=== PATIENT | male | born 1985 | race Caucasian/White ===

== ENCOUNTER → 2018-07-03 | Outpatient (CLI) | payer OTHER ==
[~2018-07-03] MED LIST: ACET-716 PO; ADDE10CA3; ARIS2.4I; AUGM500T34 PO; IBUP-1022 PO; MAGICMW MT; MELO15TA28; MOBI4TAB PO; SERT-138 PO; WELLTAB40
--- NOTE | 2018-07-07 07:53 | SLEEPHOME ---
DATE OF PROCEDURE: 07/03/2018 ORDERING PROVIDER: GEOVANNY Hylton, copy to BERNIE Mays. INTERPRETATION: Diagnostic home sleep testing was performed due to concern for the obstructive sleep apnea syndrome in this patient with history of excessive somnolence and nonrestorative sleep who has comorbidities of snoring. For testing a nocturnal T3 respiratory monitoring device was used. Continuous record was made of pulse, oxygen saturation, airflow, chest, abdominal strain and body position. 10 hours and 59 minutes of data were reviewed. There were 7 hours and 49 minutes identified as time in bed. During the interval marked time in bed, there were 772 respiratory events identified of 10 seconds in duration or greater for a respiratory event index of 98.7. The events were primarily obstructive but 50 of the events were central or mixed. Baseline pulse rate 87 beats per minute, pulse rate ranged 69-114. Baseline saturation 93% saturations fell to 70%, and the oxygen desaturation index was 87.9. IMPRESSION: Abnormal home sleep testing with repetitive respiratory events and oxygen desaturations to 70% with a respiratory event index of 98.7 is consistent with severe obstructive sleep apnea syndrome. RECOMMENDATIONS: The patient should be encouraged to undergo formal sleep evaluation and in-laboratory pressure titration.
== END ==
LOC: M SLEEP HO 11:40
PROVIDERS: ATTEND Nurse Practitioner Family
DX: R06.83 Snoring (principal)

== ENCOUNTER → 2018-07-11 | Outpatient (CLI) | payer OTHER ==
[2018-07-11 14:04] LABS: HEMOGLOBIN A1c 6.6 %
[2018-07-11 14:15] LABS: CHOLESTEROL RISK RATIO 7.848 (<5)
== END ==
LOC: M LAB 12:43
PROVIDERS: ATTEND Nurse Practitioner Psychiatric/Mental Health
DX: F20.0 Paranoid schizophrenia (principal); Z79.899 Other long term (current) drug therapy

== ENCOUNTER 2018-10-13 11:50 | Day surgery (SDC) | payer OTHER ==
[~2018-10-13] VITALS: Ht 185.4 cm; Wt 170.1 kg
[~2018-10-13 11:50] MED LIST changes: +ADDE20CA3 PO; +BUPR300T34 PO; +LIDOCAINE 2% INJ 100 MG/5 ML SDV (FOR ANES.) As Ordered ONE; +LORA-243 PO; +PROPOFOL 200 MG/20 ML VIAL As Ordered ONE
[2018-10-13] MEDS: NS 1,000 ML IV ONE (12:18)
[2018-10-13] MEDS ORDERED: fentaNYL 100 MCG/2 ML INJECTION (J3010) As Ordered ONE (12:22)
--- NOTE | 2018-10-13 13:13 | ROOR ---
Patient Name: Vipul Lucero Procedure Date: 10/13/2018 12:25 PM Date of : 1985 Age: 33 Room: [facility] Gender: Male Note Status: Finalized Procedure: Upper GI endoscopy Indications: Follow-up of eosinophilic esophagitis Providers: Madhu Ahumada MD Referring MD: RACHELLE GARCIA NP Requesting Provider: Medicines: Monitored Anesthesia Care Complications: No immediate complications. Procedure: Pre-Anesthesia Assessment: - Prior to the procedure, a History and Physical was performed, and patient medications and allergies were reviewed. The patient is competent. The risks and benefits of the procedure and the sedation options and risks were discussed with the patient. All questions were answered and informed consent was obtained. Patient identification and proposed procedure were verified by the physician, the nurse and the anesthesiologist in the procedure room. Mental Status Examination: alert and oriented. Airway Examination: normal oropharyngeal airway and neck mobility. Respiratory Examination: clear to auscultation. CV Examination: normal. Prophylactic Antibiotics: The patient does not require prophylactic antibiotics. Prior Anticoagulants: The patient has taken no previous anticoagulant or antiplatelet agents. ASA Grade Assessment: II - A patient with mild systemic disease. After reviewing the risks and benefits, the patient was deemed in satisfactory condition to undergo the procedure. The anesthesia plan was to use monitored anesthesia care (MAC). Immediately prior to administration of medications, the patient was re-assessed for adequacy to receive sedatives. The heart rate, respiratory rate, oxygen saturations, blood pressure, adequacy of pulmonary ventilation, and response to care were monitored throughout the procedure. The physical status of the patient was re-assessed after the procedure. The Endoscope was introduced through the mouth, and advanced to the second part of duodenum. The upper GI endoscopy was accomplished without difficulty. The patient tolerated the procedure well. Findings: Mucosal changes including ringed esophagus, longitudinal furrows, white plaques and circumferential folds were found in the entire esophagus. Esophageal findings were graded using the Eosinophilic Esophagitis Endoscopic Reference Score (EoE-EREFS) as: Edema Grade 1 Present (decreased clarity or absence of vascular markings), Rings Grade 2 Moderate (distinct rings that do not occlude passage of diagnostic 8-10 mm endoscope), Exudates Grade 1 Mild (scattered white lesions involving less than 10 percent of the esophageal surface area), Furrows Grade 1 Present (vertical lines with or without visible depth) and Stricture none (no stricture found). Biopsies were obtained from the proximal and distal esophagus with cold forceps for histology of suspected eosinophilic esophagitis. Verification of patient identification for the specimen was done by the physician and nurse using the patient's name, date and medical record number. Estimated blood loss was minimal. The Z-line was regular and was found in the distal esophagus. Scattered minimal inflammation characterized by erythema and granularity was found in the gastric antrum. Biopsies were taken with a cold forceps for Helicobacter pylori testing. The duodenal bulb and second portion of the duodenum were normal. Impression: - Esophageal mucosal changes secondary to eosinophilic esophagitis. Biopsied. - Z-line regular, in the distal esophagus. - Gastritis. Biopsied. - Normal duodenal bulb and second portion of the duodenum. Recommendation: - Patient has a contact number available for emergencies. The signs and symptoms of potential delayed complications were discussed with the patient. Return to normal activities tomorrow. Written discharge instructions were provided to the patient. - Resume previous diet. - Continue present medications. - Await pathology results. - - Take fluticasone -- 220mcg puffs - to be swallowed -- twice daily. - Telephone GI clinic for pathology results in 2 weeks. - Return to primary care physician. - Avoid the food allergens. Follow Six Food Elimination Diet ( Avoid -- milk, soy, eggs, wheat, peanuts/tree nuts, and seafood), until allergy testing is done. Madhu Ahumada MD Madhu Ahumada MD 10/13/2018 1:12:26 PM Electronically signed by Madhu Ahumada MD Number of Addenda: 0 Note Initiated On: 10/13/2018 12:25 PM Estimated Blood Loss: Estimated blood loss: none.
[2018-10-13 13:29] VITALS: BP 129/63
== END 2018-10-13 14:23 | disposition home or self-care (01) ==
LOC: M OPP 11:50
PROVIDERS: ATTEND Internal Medicine Gastroenterology
DX: K20.0 Eosinophilic esophagitis (principal); K29.70 Gastritis, unspecified, without bleeding; Z79.899 Other long term (current) drug therapy; Z88.5 Allergy status to narcotic agent
CPT/HCPCS: 88305; J3010

== ENCOUNTER → 2018-10-31 | Outpatient (REF) | payer OTHER ==
[~2018-10-31] MED LIST changes: -LIDOCAINE 2% INJ 100 MG/5 ML SDV (FOR ANES.) As Ordered ONE; -PROPOFOL 200 MG/20 ML VIAL As Ordered ONE
[2018-11-02 14:51] LABS: TESTOSTERONE FREE (DIRECT) 6.3 pg/mL (8.7-25.1)
== END ==
LOC: M LAB REF 16:15
PROVIDERS: ATTEND Nurse Practitioner Family
DX: N52.9 Male erectile dysfunction, unspecified (principal)

== ENCOUNTER → 2018-12-14 | Outpatient (CLI) | payer OTHER ==
[2018-12-14 16:01] LABS: FOLLICLE STIMULATING HORMONE 5.2 mIU/mL (1.4-18.1)
[2018-12-20 10:12] LABS: TESTOSTERONE %FREE+WEAKLY BOUN 45.8 % (9.0-46.0); TESTOSTERONE TOTAL 227 ng/dL (264-916)
== END ==
LOC: M LAB 13:27
PROVIDERS: ATTEND Nurse Practitioner Family
DX: E29.1 Testicular hypofunction (principal)

== ENCOUNTER → 2019-01-03 | Outpatient (CLI) | payer OTHER ==
[2019-01-06 00:13] LABS: TESTOSTERONE %FREE+WEAKLY BOUN 28.4 % (9.0-46.0); TESTOSTERONE FREE+WEAKLY BOUND 61.1 ng/dL (40.0-250.0); TESTOSTERONE TOTAL 215 ng/dL (264-916)
== END ==
LOC: M LAB 09:59
PROVIDERS: ATTEND Nurse Practitioner Family
DX: E29.1 Testicular hypofunction (principal)

== ENCOUNTER → 2019-01-15 | Outpatient (CLI) | payer OTHER ==
--- NOTE | 2019-01-16 02:45 | REP ---
Clinical: Medial sided pain . Technique: AP, lateral, bilateral oblique views left ankle . Findings: No acute fracture or dislocation. Skeletal structures and joint spaces are intact and normal. Ankle mortise appears stable. No subcutaneous emphysema or radiodense foreign body. Small calcaneal heal spur noted. Impression: Normal age-appropriate left ankle radiograph series. Electronically Signed by Merrick Roa MD 01/16/2019 02:37 A
== END ==
LOC: M WUC 15:50
PROVIDERS: ATTEND Physician Assistant
DX: M25.572 Pain in left ankle and joints of left foot (principal)

== ENCOUNTER 2019-06-03 12:33 | Emergency (ER) | payer OTHER ==
[~2019-06-03] VITALS: Ht 188 cm; Wt 173.6 kg
[~2019-06-03 12:33] MED LIST changes: -BUPR300T34 PO; +BUPR300T92 PO
[2019-06-03] MEDS ORDERED: RISP1TAB3 (12:42)
[2019-06-03] MEDS ORDERED: MECLIZINE 25 MG TABLET PO ONE (13:00)
--- NOTE | 2019-06-03 13:25 | REP ---
Head CT without contrast: History: Vertigo. Comparison study: No comparison study where. CT findings: Bone window settings demonstrate an intact bony calvarium. There is no evidence of skull fracture or incidental bony calvarial lesion. The visualized paranasal sinuses appear clear. No intraorbital abnormality is seen. On soft tissue window setting images; the lateral, third, and fourth ventricles are normal in size and position. Peters-white differentiation pattern is normal above and below the tentorium. There are is no evidence of intracranial hemorrhage. No mass, edema, infarction, or midline shift is seen. No extra-axial fluid collection is appreciated. Impression: Negative noncontrast head CT. Electronically Signed by Rasheed Gonzalez MD 06/03/2019 01:16 P
[2019-06-03 13:26] LABS: BASO # 0.1 10^3/uL (0.0-0.2); BASO % 0.7 % (0.0-1.0); EOS # 0.2 10^3/uL (0.0-0.5); EOS % 1.9 % (0.0-3.0); HEMATOCRIT 40.3 % (42.0-52.0); HEMOGLOBIN 12.9 g/dl (13.5-17.5); LYMPH # 2.3 10^3/uL (1.5-5.0); LYMPH % 27.2 % (24.0-44.0); MEAN CORPUSCULAR HEMOGLOBIN 25.7 pg (27.0-33.0); MEAN CORPUSCULAR VOLUME 80.3 fl (80.0-96.0); MONO # 0.5 10^3/uL (0.0-0.8); MONO % 6.1 % (0.0-5.0); NEUTROPHILS # 5.4 10^3/uL (1.5-8.5); NEUTROPHILS % 63.9 % (36.0-66.0); PLATELET COUNT, AUTOMATED 339 10^3/uL (150-450); RED BLOOD COUNT 5.02 10^6/uL (4.30-6.10); WHITE BLOOD COUNT 8.5 10^3/uL (4.0-10.0)
[2019-06-03 13:59] LABS: BLOOD UREA NITROGEN 12 MG/DL (7-18); CALCIUM LEVEL 8.4 MG/DL (8.5-10.1); CARBON DIOXIDE LEVEL 24 MEQ/L (21-32); CHLORIDE LEVEL 110 MEQ/L (98-107); CREATININE FOR GFR 0.88 MG/DL (0.70-1.30); GLOMERULAR FILTRATION RATE > 60.0 (>60); GLUCOSE, FASTING 90 MG/DL (70-100); POTASSIUM SERUM 4.2 MEQ/L (3.5-5.1); SODIUM LEVEL 141 MEQ/L (136-145)
[2019-06-03] MEDS ORDERED: MECL1TAB31 PO (14:57)
[2019-06-03 15:12] VITALS: BP 137/74
== END 2019-06-03 15:14 | disposition home or self-care (01) ==
LOC: M ED 12:33
DX: H81.10 Benign paroxysmal vertigo, unspecified ear (principal); G47.30 Sleep apnea, unspecified; R86.1 Abnormal level of hormones in specimens from male genital organs; F90.9 Attention-deficit hyperactivity disorder, unspecified type; Z88.5 Allergy status to narcotic agent; Z79.82 Long term (current) use of aspirin; Z79.899 Other long term (current) drug therapy

== ENCOUNTER → 2019-06-29 | Outpatient (REF) | payer OTHER ==
[~2019-06-29] MED LIST changes: +MECL1TAB31 PO; +RISP1TAB3
== END ==
LOC: M LABDRAW1 13:02
PROVIDERS: ATTEND Nurse Practitioner Family
DX: E29.1 Testicular hypofunction (principal)

== ENCOUNTER → 2019-10-25 | Outpatient (CLI) | payer OTHER | LOC: M LAB 11:05 | PROVIDERS: ATTEND Nurse Practitioner Family | DX: E29.1 Testicular hypofunction (principal) ==

== ENCOUNTER 2019-12-31 15:30 | Emergency (ER) | payer OTHER ==
[~2019-12-31] VITALS: Ht 188 cm; Wt 170.6 kg
[2019-12-31 18:52] LABS: BASO % 0.5 % (0.0-1.0); HEMATOCRIT 48.2 % (42.0-52.0); HEMOGLOBIN 15.4 g/dl (13.5-17.5); LYMPH # 0.7 10^3/uL (1.5-5.0); LYMPH % 20.2 % (24.0-44.0); MEAN CORPUSCULAR HEMOGLOBIN 25.8 pg (27.0-33.0); MEAN CORPUSCULAR VOLUME 80.7 fl (80.0-96.0); MONO # 0.2 10^3/uL (0.0-0.8); MONO % 6.6 % (0.0-5.0); NEUTROPHILS # 2.6 10^3/uL (1.5-8.5); NEUTROPHILS % 72.2 % (36.0-66.0); PLATELET COUNT, AUTOMATED 187 10^3/uL (150-450); RED BLOOD COUNT 5.97 10^6/uL (4.30-6.10); WHITE BLOOD COUNT 3.7 10^3/uL (4.0-10.0)
[2019-12-31 19:22] LABS: ALBUMIN 3.8 GM/DL (3.2-5.2); BILIRUBIN,DIRECT 0.1 MG/DL (0.0-0.2); BILIRUBIN,TOTAL 0.4 MG/DL (0.2-1.0)
[2019-12-31] MEDS ORDERED: ACETAMINOPHEN 500 MG TAB PO ONE (19:30)
[2019-12-31] MEDS ORDERED: IBUPROFEN 800 MG TAB PO ONE (19:30)
[2019-12-31] MEDS ORDERED: ONDANSETRON 4 MG ORAL DISINTEGRATING TAB PO ONE (19:30)
[2019-12-31 19:42] VITALS: BP 138/82
== END 2019-12-31 19:56 | disposition home or self-care (01) ==
LOC: M ED 15:30
DX: M79.10 Myalgia, unspecified site (principal); R51.9 Headache, unspecified; F20.9 Schizophrenia, unspecified; Z88.6 Allergy status to analgesic agent; Z79.899 Other long term (current) drug therapy
CPT/HCPCS: 36415; 80047; 80076; 83690; 85025; 99283; Q0162

== ENCOUNTER → 2020-06-18 | Outpatient (CLI) | payer OTHER ==
[~2020-06-18] MED LIST changes: +RISP-8; -RISP1TAB3
--- NOTE | 2020-06-18 17:37 | REP ---
INDICATION: PAIN. COMPARISON: No comparison right ankle radiographs.. TECHNIQUE: Four views of the right ankle are provided. FINDINGS: There is mild diffuse soft tissue swelling about the ankle anteriorly medially and laterally. There is an intact ankle mortise. No fracture or subluxation is seen. Plantar calcaneal spurring is noted. IMPRESSION: No acute bony abnormality. Diffuse soft tissue swelling. Plantar heel spur. <Electronically signed by Juan Gonzalez > 06/18/20 [id number]
== END ==
LOC: M WUC 14:49
PROVIDERS: ATTEND Registered Nurse
DX: M77.31 Calcaneal spur, right foot (principal); M25.471 Effusion, right ankle

== ENCOUNTER → 2020-11-12 | Outpatient (CLI) | payer MEDICARE, OTHER ==
--- NOTE | 2020-11-13 14:46 | SLEEPCENT ---
DATE: 11/12/2020 ORDERED BY: Kari Amaral Nocturnal polysomnography was performed for evaluation of sleep physiology in this patient with a history of excessive somnolence and nonrestorative sleep. There was 7 hours and 23 minutes of data reviewed. There was 295 minutes of sleep identified. Sleep latency was prolonged at 50.5 minutes. REM sleep was not achieved. Sleep architecture showed poor progression and periods of wake. Overall sleep efficiency 67.4%. The electrocardiogram showed a sinus rhythm with an average heart rate of 75 beats per minute. Unifocal ventricular ectopic beats were noted. EEG showed normal waveforms for wake and sleep. There were 464 respiratory events identified of 10 seconds in duration or greater for an apnea-hypopnea index of 94.4. The events were primarily obstructive. There were 22 mixed apneas noted. Events were not exclusive to sleep stage nor body posture. Arousals from respiratory events occurred 5.3 times per hour, and oxygen desaturations were seen into the low 80s. There was some activity in the limb leads as well, but limb movement arousal index was only 1. IMPRESSION: Severe obstructive sleep apnea syndrome (G47.33). Apnea-hypopnea index 94.4. RECOMMENDATION: The patient should be encouraged to return to the sleep disorder center at the earliest convenience for the implementation of pressure therapy. In the interim, alcohol and sedative avoidance should be practiced and caution exercised during the operation of motor vehicles.
== END ==
LOC: M SLEEP 20:00
PROVIDERS: ATTEND Nurse Practitioner Family
DX: G47.33 Obstructive sleep apnea (adult) (pediatric) (principal)

== ENCOUNTER 2020-12-08 15:06 | Emergency (ER) | payer OTHER ==
[~2020-12-08] VITALS: Ht 188 cm; Wt 189.9 kg
[2020-12-08 15:07] VITALS: BP 145/66
--- NOTE | 2020-12-08 19:48 | ECGEPIP ---
[facility] - ED Test Date: 2020-12-08 Pat Name: DONNY LOONEY Department: Room: - Gender: Male Director Customer: [place] : 1985 Requested By: Kiki Young Order Number: [id number] Reading MD: Kiki Young Measurements Intervals [place] Rate: 68 P: 27 CO: 192 QRS: 17 QRSD: 92 T: 30 QT: 410 QTc: 435 Interpretive Statements Normal sinus rhythm Nonspecific ST T wave changes Delayed R wave progression Electronically Signed on 12-08-2020 19:48:04 EDT by Kiki Young
== END 2020-12-08 17:06 | disposition left against medical advice (07) ==
LOC: M ED 15:06
DX: Z53.21 Procedure and treatment not carried out due to patient leaving prior to being seen by health care provider (principal)

== ENCOUNTER → 2021-01-07 | Outpatient (REF) | payer MEDICARE, OTHER ==
[2021-01-07 21:50] LABS: GC DNA AMPLIFICATION NEGATIVE (NEGATIVE)
== END ==
LOC: M LAB REF 20:03
PROVIDERS: ATTEND Physician Assistant
DX: R82.90 Unspecified abnormal findings in urine (principal)

== ENCOUNTER → 2021-01-15 | Outpatient (CLI) | payer MEDICARE, OTHER ==
[2021-01-15 13:25] LABS: BASO # 0.1 10^3/uL (0.0-0.2); BASO % 0.5 % (0.0-1.0); EOS # 0.2 10^3/uL (0.0-0.5); EOS % 1.6 % (0.0-3.0); HEMATOCRIT 45.3 % (42.0-52.0); HEMOGLOBIN 14.5 g/dl (13.5-17.5); LYMPH # 2.1 10^3/uL (1.5-5.0); LYMPH % 22.1 % (24.0-44.0); MEAN CORPUSCULAR HEMOGLOBIN 25.7 pg (27.0-33.0); MEAN CORPUSCULAR VOLUME 80.3 fl (80.0-96.0); MONO # 0.5 10^3/uL (0.0-0.8); MONO % 5.2 % (2.0-8.0); NEUTROPHILS # 6.7 10^3/uL (1.5-8.5); NEUTROPHILS % 70.3 % (36.0-66.0); PLATELET COUNT, AUTOMATED 358 10^3/uL (150-450); RED BLOOD COUNT 5.64 10^6/uL (4.30-6.10); WHITE BLOOD COUNT 9.5 10^3/uL (4.0-10.0)
[2021-01-15 13:53] LABS: C REACTIVE PROTEIN QUANTITATIV 1.51 MG/DL (0.00-0.30); RHEUMATOID FACTOR QUANT < 10.0 IU/ML (<15.0)
[2021-01-15 14:07] LABS: ERYTHROCYTE SEDIMENTATION RATE 21 mm/hr (0-15)
== END ==
LOC: M LAB 11:32
PROVIDERS: ATTEND Physician Assistant
DX: M25.551 Pain in right hip (principal)

== ENCOUNTER → 2021-10-06 | Outpatient (REF) | payer MEDICARE, OTHER ==
[2021-10-06 17:54] LABS: BACTERIA, URINE AUTO NEGATIVE (NEGATIVE); MUCUS, URINE SMALL (NEGATIVE); RBC, URINE AUTO 1 /HPF (0-3); SQUAMOUS EPITHELIAL CELL UR AU 1 /HPF (0-6); WBC, URINE AUTO 15 /HPF (0-3)
== END ==
LOC: M LAB REF 16:39
PROVIDERS: ATTEND Physician Assistant Medical
DX: R30.0 Dysuria (principal)

== ENCOUNTER → 2022-04-18 | Outpatient (CLI) | payer MEDICARE, OTHER ==
[~2022-04-18] MED LIST changes: +ABIL1TAB11 PO; +BENZ0.5T23 PO; +BUPR150T12 PO; +INVE1.75; +METF500T13 PO; +OMEP40CA5 PO; +PROP20TA72 PO
== END ==
LOC: M LABSMTC 10:35
PROVIDERS: ATTEND Anesthesiology
DX: Z01.818 Encounter for other preprocedural examination (principal)

== ENCOUNTER → 2022-05-07 | Outpatient (REF) | payer MEDICARE, OTHER | LOC: M LAB REF 16:17 | PROVIDERS: ATTEND Physician Assistant Medical | DX: N39.0 Urinary tract infection, site not specified (principal) ==

== ENCOUNTER 2022-05-16 13:06 | Emergency (ER) | payer MEDICARE, OTHER ==
[~2022-05-16] VITALS: Ht 188 cm; Wt 187.3 kg
[~2022-05-16 13:06] MED LIST changes: +ALBU8.5H INH
[2022-05-16] MEDS ORDERED: GI COCKTAIL 50ML BTL(HYOSCYAMINE/MAALOX/LIDOCAINE VISCOUS)(1:3:1) PO ONE (13:25)
[2022-05-16 13:46] LABS: BASO % 0.4 % (0.0-1.0); EOS # 0.2 10^3/uL (0.0-0.5); HEMOGLOBIN 13.7 g/dl (13.5-17.5); LYMPH # 2.1 10^3/uL (1.5-5.0); LYMPH % 22.8 % (24.0-44.0); MEAN CORPUSCULAR HEMOGLOBIN 25.9 pg (27.0-33.0); MEAN CORPUSCULAR HGB CONC 31.9 g/dl (32.0-36.5); MEAN CORPUSCULAR VOLUME 81.4 fl (80.0-96.0); MONO # 0.4 10^3/uL (0.0-0.8); MONO % 4.3 % (2.0-8.0); NEUTROPHILS # 6.5 10^3/uL (1.5-8.5); NEUTROPHILS % 70.2 % (36.0-66.0); PLATELET COUNT, AUTOMATED 348 10^3/uL (150-450); RED BLOOD COUNT 5.28 10^6/uL (4.30-6.10); WHITE BLOOD COUNT 9.3 10^3/uL (4.0-10.0)
[2022-05-16 14:22] LABS: CK-MB VALUE MASS < 1.0 NG/ML (<3.6); LIPASE 22 U/L (12-53)
[2022-05-16 14:24] LABS: ALBUMIN 3.5 G/DL (3.2-5.2); ALKALINE PHOSPHATASE 93 U/L (46-116); ALT/SGPT 34 U/L (7.0-40); AST/SGOT 16 U/L (<34); BILIRUBIN,DIRECT < 0.1 MG/DL (<0.4); BILIRUBIN,TOTAL 0.3 MG/DL (0.3-1.2); BLOOD UREA NITROGEN 10 MG/DL (9-23); CALCIUM LEVEL 9.2 MG/DL (8.5-10.1); CARBON DIOXIDE LEVEL 25 MMOL/L (20-31); CHLORIDE LEVEL 107 MMOL/L (98-107); CREATININE FOR GFR 0.76 MG/DL (0.70-1.30); GLOMERULAR FILTRATION RATE > 60.0 (>60); GLUCOSE, FASTING 158 MG/DL (60-100); SODIUM LEVEL 139 MMOL/L (136-145); TOTAL PROTEIN 6.8 G/DL (5.7-8.2)
[2022-05-16 14:26] LABS: FREE T4 1.08 NG/DL (0.89-1.76); THYROID STIMULATING HORMONE 2.567 uIU/ML (0.55-4.78)
[2022-05-16 14:28] LABS: CPK CREATINE PHOSPHOKINASE 97 U/L (46-171); MB/CK RELATIVE INDEX 1.03 (< OR =4)
[2022-05-16 14:36] VITALS: BP 126/71
[2022-05-16] MEDS ORDERED: SUCR1SS PO (14:54)
[2022-05-16] MEDS ORDERED: SUCRALFATE SUSP 1GM/10ML UD PO ONE (14:55)
[2022-05-16] MEDS ORDERED: CARA1TAB6 PO (15:17)
== END 2022-05-16 15:10 | disposition home or self-care (01) ==
LOC: M ED 13:06
DX: K21.00 Gastro-esophageal reflux disease with esophagitis, without bleeding (principal); F90.9 Attention-deficit hyperactivity disorder, unspecified type; F20.9 Schizophrenia, unspecified; Z88.5 Allergy status to narcotic agent; Z79.52 Long term (current) use of systemic steroids; Z79.4 Long term (current) use of insulin; Z79.899 Other long term (current) drug therapy

== ENCOUNTER → 2022-05-17 | Outpatient (CLI) | payer MEDICARE, OTHER ==
[~2022-05-17] MED LIST changes: +CARA1TAB6 PO; +SUCR1SS PO
== END ==
LOC: M LAB 14:13
PROVIDERS: ATTEND Internal Medicine Gastroenterology
DX: R19.7 Diarrhea, unspecified (principal)

== ENCOUNTER → 2022-05-24 | Outpatient (CLI) | payer MEDICARE, OTHER | LOC: M LABSMTC 11:06 | PROVIDERS: ATTEND Anesthesiology | DX: Z01.812 Encounter for preprocedural laboratory examination (principal) ==

== ENCOUNTER → 2022-06-10 | Outpatient (REF) | payer MEDICARE, OTHER | LOC: M WUC 11:12 | PROVIDERS: ATTEND Nurse Practitioner Family | DX: J02.9 Acute pharyngitis, unspecified (principal) ==

== ENCOUNTER → 2022-06-15 | Outpatient (CLI) | payer MEDICARE, OTHER | LOC: M LABSMTC 10:02 | PROVIDERS: ATTEND Anesthesiology | DX: Z01.818 Encounter for other preprocedural examination (principal); Z11.52 Encounter for screening for COVID-19 ==

== ENCOUNTER 2022-07-23 07:44 | Day surgery (SDC) | payer MEDICARE, OTHER ==
[~2022-07-23] VITALS: Ht 188 cm; Wt 174.6 kg
[~2022-07-23 07:44] MED LIST changes: +LIDOCAINE 2% 100MG/5ML SDV (FOR ANES.) As Ordered ONE; +NS 1,000 ML IV ONE; +propofoL 200 MG/20 ML VIAL As Ordered ONE
[2022-07-23] MEDS ORDERED: LIDOCAINE 2% 100MG/5ML SDV (FOR ANES.) As Ordered ONE (08:23)
[2022-07-23] MEDS ORDERED: propofoL 200 MG/20 ML VIAL As Ordered ONE ×2 (08:23→09:16)
[2022-07-23] MEDS ORDERED: fentaNYL 100 MCG/2 ML INJECTION As Ordered ONE (08:24)
[2022-07-23 10:03] VITALS: BP 119/57
== END 2022-07-23 10:17 | disposition home or self-care (01) ==
LOC: M OPP 07:44
PROVIDERS: ATTEND Internal Medicine Gastroenterology
DX: K63.89 Other specified diseases of intestine (principal); K64.4 Residual hemorrhoidal skin tags; K64.8 Other hemorrhoids; K22.89 Other specified disease of esophagus; K29.70 Gastritis, unspecified, without bleeding; K57.10 Diverticulosis of small intestine without perforation or abscess without bleeding; K31.89 Other diseases of stomach and duodenum; K20.0 Eosinophilic esophagitis; K92.0 Hematemesis; G47.33 Obstructive sleep apnea (adult) (pediatric); Z87.891 Personal history of nicotine dependence; Z79.84 Long term (current) use of oral hypoglycemic drugs; Z79.899 Other long term (current) drug therapy
CPT/HCPCS: 43239; 45380; 88305; J3010

== ENCOUNTER → 2022-07-30 | Outpatient (CLI) | payer MEDICARE, OTHER ==
[~2022-07-30] MED LIST changes: +BENZ0.5T2 PO; -BENZ0.5T23 PO; -LIDOCAINE 2% 100MG/5ML SDV (FOR ANES.) As Ordered ONE; -NS 1,000 ML IV ONE; -propofoL 200 MG/20 ML VIAL As Ordered ONE
== END ==
LOC: M WUC 10:50
PROVIDERS: ATTEND Physician Assistant
DX: N53.19 Other ejaculatory dysfunction (principal)

== ENCOUNTER → 2022-08-04 | Outpatient (CLI) | payer MEDICARE, OTHER | LOC: M EKG 09:09 | PROVIDERS: ATTEND Nurse Practitioner Family | DX: R00.2 Palpitations (principal) ==

== ENCOUNTER → 2022-08-23 | Outpatient (REF) | payer MEDICARE, OTHER | LOC: M LAB REF 09:59 | PROVIDERS: ATTEND Nurse Practitioner Family | DX: L03.031 Cellulitis of right toe (principal) ==

== ENCOUNTER 2023-08-21 11:47 | Emergency (ER) | payer MEDICARE, MEDICAID ==
[~2023-08-21] VITALS: Ht 188 cm; Wt 156.8 kg
[~2023-08-21 11:47] MED LIST changes: +BUPR-597 PO; -BUPR300T92 PO; +MECL-209 PO; -MECL1TAB31 PO; +RISP-105; -RISP-8
[2023-08-21 12:56] LABS: BASO # 0.1 10^3/uL (0.0-0.2); BASO % 0.6 % (0.0-1.0); EOS # 0.1 10^3/uL (0.0-0.5); EOS % 1.1 % (0.0-3.0); LYMPH # 2.2 10^3/uL (1.5-5.0); LYMPH % 26.2 % (24.0-44.0); MEAN CORPUSCULAR HEMOGLOBIN 27.2 pg (27.0-33.0); MEAN CORPUSCULAR HGB CONC 33.3 g/dl (32.0-36.5); MEAN CORPUSCULAR VOLUME 81.6 fl (80.0-96.0); MONO # 0.4 10^3/uL (0.0-0.8); NEUTROPHILS # 5.6 10^3/uL (1.5-8.5); NEUTROPHILS % 66.9 % (36.0-66.0); PLATELET COUNT, AUTOMATED 313 10^3/uL (150-450); RED BLOOD COUNT 5.15 10^6/uL (4.30-6.10); WHITE BLOOD COUNT 8.4 10^3/uL (4.0-10.0)
[2023-08-21 13:33] LABS: CK-MB VALUE MASS < 1.0 NG/ML (<3.6); LIPASE 35 U/L (12-53)
[2023-08-21 13:35] LABS: ALBUMIN 3.5 G/DL (3.2-5.2); ALKALINE PHOSPHATASE 79 U/L (46-116); ALT/SGPT 29 U/L (7.0-40); AST/SGOT 11 U/L (<34); BILIRUBIN,DIRECT < 0.1 MG/DL (<0.4); BILIRUBIN,TOTAL 0.3 MG/DL (0.3-1.2); BLOOD UREA NITROGEN 11 MG/DL (9-23); CARBON DIOXIDE LEVEL 26 MMOL/L (20-31); CHLORIDE LEVEL 109 MMOL/L (98-107); CREATININE FOR GFR 0.84 MG/DL (0.70-1.30); GLOMERULAR FILTRATION RATE > 60.0 (>60); GLUCOSE, FASTING 94 MG/DL (60-100); POTASSIUM SERUM 4.4 MMOL/L (3.5-5.1); SODIUM LEVEL 141 MMOL/L (136-145); TOTAL PROTEIN 6.6 G/DL (5.7-8.2)
[2023-08-21 13:42] LABS: CPK CREATINE PHOSPHOKINASE 114 U/L (46-171); MB/CK RELATIVE INDEX 0.87 (< OR =4)
[2023-08-21 14:36] LABS: MAGNESIUM LEVEL 1.7 MG/DL (1.8-2.4)
[2023-08-21 14:40] LABS: THYROID STIMULATING HORMONE 1.473 uIU/ML (0.55-4.78)
[2023-08-21 14:41] LABS: FREE T4 1.17 NG/DL (0.89-1.76)
[2023-08-21 15:20] LABS: CK-MB VALUE MASS < 1.0 NG/ML (<3.6)
[2023-08-21 15:21] LABS: CPK CREATINE PHOSPHOKINASE 103 U/L (46-171); MB/CK RELATIVE INDEX 0.97 (< OR =4)
[2023-08-21] MEDS ORDERED: ISOVUE-370 76% 100ML VIAL As Ordered ONE (15:38)
[2023-08-21] MEDS: MAGNESIUM OXIDE 400MG TAB (MAG-OX) PO ONE (15:56)
[2023-08-21] MEDS: NS 500 ML IV ONE (15:56)
[2023-08-21 16:15] VITALS: BP 121/74; TEMP 97.6; O2SAT 97
== END 2023-08-21 16:20 | disposition home or self-care (01) ==
LOC: M ED 11:47
DX: T50.905A Adverse effect of unspecified drugs, medicaments and biological substances, initial encounter (principal); R42 Dizziness and giddiness; R00.2 Palpitations; E83.42 Hypomagnesemia; F41.9 Anxiety disorder, unspecified; E11.9 Type 2 diabetes mellitus without complications; Z88.5 Allergy status to narcotic agent; Z79.811 Long term (current) use of aromatase inhibitors; Z79.810 Long term (current) use of selective estrogen receptor modulators (SERMs); Z79.4 Long term (current) use of insulin; Z79.899 Other long term (current) drug therapy
CPT/HCPCS: 71045; 71275; 80048; 80076; 82550; 82553; 83690; 83735; 84439; 84443; 84484; 85025; 85379; 93005; 93041; 94760; 96360; 99285; Q9967

== ENCOUNTER → 2023-10-14 | Outpatient (CLI) | payer MEDICARE, MEDICAID | LOC: M RAD 17:35 | PROVIDERS: ATTEND Physician Assistant | DX: S60.012A Contusion of left thumb without damage to nail, initial encounter (principal); Y93.9 Activity, unspecified; Y92.9 Unspecified place or not applicable ==

== ENCOUNTER → 2023-12-05 | Outpatient (REF) | payer MEDICARE, MEDICAID | LOC: M LAB REF 16:29 | PROVIDERS: ATTEND Physician Assistant Medical | DX: R20.0 Anesthesia of skin (principal); R41.3 Other amnesia ==

== ENCOUNTER → 2024-01-14 | Outpatient (CLI) | payer MEDICARE, MEDICAID | LOC: M RAD 11:31 | PROVIDERS: ATTEND Physician Assistant Medical | DX: M25.561 Pain in right knee (principal); M25.562 Pain in left knee; M79.672 Pain in left foot ==

== ENCOUNTER 2024-04-09 17:05 | Emergency (ER) | payer MEDICARE, MEDICAID ==
[~2024-04-09] VITALS: Ht 188 cm; Wt 160.9 kg
[2024-04-09] MEDS ORDERED: PALI1560 (17:28)
[2024-04-09] MEDS ORDERED: BUSP10TA (17:28)
[2024-04-09] MEDS ORDERED: SEMA1PEN2 (17:28)
[2024-04-09] MEDS: LIDOCAINE 1% MDV 20ML VIAL SC ONE (18:15)
[2024-04-09] MEDS: BOOSTRIX VACCINE (TETANUS/DIPHTH/ACEL. PERTUSSIS) 0.5ML SYR IM ONE (18:35)
[2024-04-09 18:50] VITALS: BP 132/79; TEMP 98.3; O2SAT 97
== END 2024-04-09 19:02 | disposition home or self-care (01) ==
LOC: M ED 17:05
DX: S61.210A Laceration without foreign body of right index finger without damage to nail, initial encounter (principal); F90.9 Attention-deficit hyperactivity disorder, unspecified type; E11.9 Type 2 diabetes mellitus without complications; Y92.000 Kitchen of unspecified non-institutional (private) residence as the place of occurrence of the external cause; Y93.G1 Activity, food preparation and clean up; Y99.9 Unspecified external cause status; Z88.5 Allergy status to narcotic agent; Z23 Encounter for immunization; Z79.4 Long term (current) use of insulin; Z79.899 Other long term (current) drug therapy

== ENCOUNTER → 2024-07-18 | Outpatient (CLI) | payer MEDICARE, MEDICAID ==
[~2024-07-18] MED LIST changes: +BUSP10TA; +PALI1560; +SEMA1PEN2
== END ==
LOC: M SOG 07:58
PROVIDERS: ATTEND Physician Assistant
DX: M25.551 Pain in right hip (principal); M25.552 Pain in left hip

== ENCOUNTER → 2024-09-26 | Outpatient (REF) | payer MEDICARE, MEDICAID ==
[~2024-09-26] MED LIST changes: -BUPR-597 PO; +BUPR-766 PO
== END ==
LOC: M WUC 19:19
PROVIDERS: ATTEND Student in an Organized Health Care Education/Training Program
DX: R30.0 Dysuria (principal)

== ENCOUNTER → 2024-10-11 | Outpatient (CLI) | payer MEDICARE, MEDICAID | LOC: M RAD 09-08 14:21 → M PLARAD 14:47 | PROVIDERS: ATTEND Physician Assistant | DX: M25.552 Pain in left hip (principal); M25.551 Pain in right hip; M16.11 Unilateral primary osteoarthritis, right hip ==

== ENCOUNTER 2024-10-25 15:25 | Emergency (ER) | payer MEDICARE, MEDICAID ==
[~2024-10-25] VITALS: Ht 188 cm; Wt 167.6 kg
[2024-10-25 19:38] VITALS: TEMP 97.9
[2024-10-25 19:45] LABS: BASO # 0.1 10^3/uL (0.0-0.2); BASO % 0.6 % (0.0-1.0); EOS # 0.1 10^3/uL (0.0-0.5); EOS % 1.4 % (0.0-3.0); LYMPH # 2.9 10^3/uL (1.5-5.0); LYMPH % 30.9 % (24.0-44.0); MONO # 0.5 10^3/uL (0.0-0.8); MONO % 5.2 % (2.0-8.0); NEUTROPHILS # 5.8 10^3/uL (1.5-8.5); NEUTROPHILS % 61.6 % (36.0-66.0); PLATELET COUNT, AUTOMATED 365 10^3/uL (150-450)
[2024-10-25 20:14] LABS: CK-MB VALUE MASS 1.0 NG/ML (<3.6)
[2024-10-25 20:17] LABS: ALT/SGPT 47 U/L (7.0-40); AST/SGOT 27 U/L (<34); CALCIUM LEVEL 9.3 MG/DL (8.5-10.1); CARBON DIOXIDE LEVEL 23 MMOL/L (20-31); CHLORIDE LEVEL 106 MMOL/L (98-107); CREATININE FOR GFR 0.92 MG/DL (0.70-1.30); GLOMERULAR FILTRATION RATE > 90.0 (>60); POTASSIUM SERUM 4.3 MMOL/L (3.5-5.1); SODIUM LEVEL 142 MMOL/L (136-145)
[2024-10-25 20:18] LABS: FREE T4 1.21 NG/DL (0.89-1.76)
[2024-10-25 20:19] LABS: CPK CREATINE PHOSPHOKINASE 116 U/L (46-171); MB/CK RELATIVE INDEX 0.86 (< OR =4)
[2024-10-25 21:01] VITALS: BP 95/67
[2024-10-25 21:10] VITALS: O2SAT 97
[2024-10-25 21:17] LABS: CK-MB VALUE MASS 1.2 NG/ML (<3.6)
[2024-10-25 21:20] LABS: CPK CREATINE PHOSPHOKINASE 113 U/L (46-171); MB/CK RELATIVE INDEX 1.06 (< OR =4)
== END 2024-10-25 22:19 | disposition home or self-care (01) ==
LOC: M ED 15:25
DX: R07.9 Chest pain, unspecified (principal); E11.9 Type 2 diabetes mellitus without complications; G47.33 Obstructive sleep apnea (adult) (pediatric); Z88.5 Allergy status to narcotic agent; Z79.899 Other long term (current) drug therapy

== ENCOUNTER → 2024-12-15 | Outpatient (REF) | payer MEDICARE, MEDICAID ==
[~2024-12-15] MED LIST changes: -IBUP-1022 PO; +IBUP600T42 PO
== END ==
LOC: M LAB REF 14:57
PROVIDERS: ATTEND Physician Assistant
DX: B34.9 Viral infection, unspecified (principal)

== ENCOUNTER 2025-02-11 16:44 | Emergency (ER) | payer MEDICAID, MEDICARE ==
[~2025-02-11] VITALS: Ht 190.5 cm; Wt 169.1 kg
[2025-02-11] MEDS ORDERED: SEMA2PEN (16:57)
[2025-02-11] MEDS ORDERED: BENZ1TAB5 (16:57)
[2025-02-11] MEDS ORDERED: PALI1TAB3 (16:57)
[2025-02-11] MEDS ORDERED: MELO7.5T35 (16:57)
[2025-02-11] MEDS ORDERED: CYCL1DRO10 (16:57)
[2025-02-11] MEDS ORDERED: METO1TAB32 (16:57)
[2025-02-11] MEDS ORDERED: HYDR-3363 (16:57)
[2025-02-11 17:42] LABS: BASO # 0.0 10^3/uL (0.0-0.2); BASO % 0.4 % (0.0-1.0); EOS # 0.2 10^3/uL (0.0-0.5); EOS % 2.1 % (0.0-3.0); LYMPH # 3.4 10^3/uL (1.5-5.0); LYMPH % 32.7 % (24.0-44.0); MONO # 0.5 10^3/uL (0.0-0.8); MONO % 5.3 % (2.0-8.0); NEUTROPHILS # 6.1 10^3/uL (1.5-8.5); NEUTROPHILS % 59.3 % (36.0-66.0); PLATELET COUNT, AUTOMATED 375 10^3/uL (150-450)
[2025-02-11 18:08] LABS: ALT/SGPT 45 U/L (7.0-40); AST/SGOT 24 U/L (<34); CALCIUM LEVEL 9.3 MG/DL (8.5-10.1); CARBON DIOXIDE LEVEL 24 MMOL/L (20-31); CHLORIDE LEVEL 107 MMOL/L (98-107); CK-MB VALUE MASS < 1.0 NG/ML (<3.6); CREATININE FOR GFR 0.78 MG/DL (0.70-1.30); GLOMERULAR FILTRATION RATE > 90.0 (>60); POTASSIUM SERUM 4.2 MMOL/L (3.5-5.1); SODIUM LEVEL 141 MMOL/L (136-145)
[2025-02-11 18:16] LABS: CPK CREATINE PHOSPHOKINASE 152 U/L (46-171)
[2025-02-11 19:52] LABS: CK-MB VALUE MASS < 1.0 NG/ML (<3.6)
[2025-02-11 19:53] LABS: CPK CREATINE PHOSPHOKINASE 153 U/L (46-171)
[2025-02-11 20:38] VITALS: BP 128/78; TEMP 98; O2SAT 98
== END 2025-02-11 20:41 | disposition home or self-care (01) ==
LOC: M ED 16:44
DX: R07.9 Chest pain, unspecified (principal); I10 Essential (primary) hypertension; G47.33 Obstructive sleep apnea (adult) (pediatric); K21.9 Gastro-esophageal reflux disease without esophagitis; F41.9 Anxiety disorder, unspecified; Z79.01 Long term (current) use of anticoagulants; Z88.5 Allergy status to narcotic agent; Z79.899 Other long term (current) drug therapy; Z79.4 Long term (current) use of insulin

== ENCOUNTER 2025-03-01 16:41 | Inpatient (IN) | payer MEDICARE ==
[~2025-03-01] VITALS: Ht 188 cm; Wt 163.6 kg
[~2025-03-01 16:41] MED LIST changes: +BENZ1TAB5 PO; +CYCL1DRO10 OU; +HYDR-3363; +MELO7.5T35 PO; +METO1TAB32 PO; -PALI1560; +PALI1560 SC; +PALI1TAB3 PO; +SEMA2PEN SC
[2025-03-01 17:58] LABS: PLATELET COUNT, AUTOMATED 361 10^3/uL (150-450)
[2025-03-01 18:25] LABS: AMPHETAMINES LEVEL URINE NEGATIVE (NEGATIVE); BARBITURATES URINE NEGATIVE (NEGATIVE); BENZODIAZEPINES URINE NEGATIVE (NEGATIVE); CANNABINOIDS URINE NEGATIVE (NEGATIVE); COCAINE METABOLITE URINE NEGATIVE (NEGATIVE); METHADONE URINE NEGATIVE (NEGATIVE); OPIATES URINE NEGATIVE (NEGATIVE); PHENCYCLIDINE URINE NEGATIVE (NEGATIVE)
[2025-03-01 18:28] LABS: ETHYL ALCOHOL (ETHANOL) < 0.003 % (0.000-0.010)
[2025-03-01 18:30] LABS: ALT/SGPT 39 U/L (7.0-40); AST/SGOT 20 U/L (<34); CALCIUM LEVEL 9.2 MG/DL (8.5-10.1); CARBON DIOXIDE LEVEL 25 MMOL/L (20-31); CHLORIDE LEVEL 106 MMOL/L (98-107); CREATININE FOR GFR 0.85 MG/DL (0.70-1.30); GLOMERULAR FILTRATION RATE > 90.0 (>60); POTASSIUM SERUM 3.9 MMOL/L (3.5-5.1); SALICYLATE LEVEL < 3.0 MG/DL (<30); SODIUM LEVEL 142 MMOL/L (136-145)
[2025-03-01] MEDS ORDERED: MAALOX 30 ML SUSP *UDC PO PRN (19:00)
[2025-03-01] MEDS ORDERED: IBUPROFEN 400 MG TAB PO PRN (19:00)
[2025-03-01] MEDS ORDERED: MOM 30 ML SUSPENSION UDC PO PRN (19:00)
[2025-03-01] MEDS ORDERED: BUSP15TA47 PO (19:37)
[2025-03-01] MEDS ORDERED: HYDR-3363 PO (19:37)
[2025-03-01] MEDS ORDERED: HYDR50TA70 PO (19:37)
[2025-03-01] MEDS ORDERED: MELA5TAB44 PO (19:37)
[2025-03-01] MEDS ORDERED: HOME MED LIST COMPLETE! XX SCH (19:40)
[2025-03-01] MEDS: OLANZapine 5 MG TAB PO PRN (20:49)
[2025-03-01] MEDS: traZODone 50 MG TAB PO PRN (20:49)
[2025-03-01 22:20] VITALS: BP 142/90; TEMP 97.2; O2SAT 95
[2025-03-01] MEDS: METOPROLOL SUCC. 25 MG *XL* TAB PO SCH (22:51)
[2025-03-02 06:33] VITALS: BP 117/78; TEMP 97.3; O2SAT 99
[2025-03-02] MEDS: MELOXICAM 7.5 MG TAB PO SCH (08:26)
[2025-03-02] MEDS: metFORMIN 500 MG TAB PO SCH (08:26)
[2025-03-02] MEDS: BENZTROPINE 1 MG TAB PO SCH (09:49)
[2025-03-02] MEDS: RISPERIDONE 1 MG TAB PO SCH (09:49)
[2025-03-02] MEDS: busPIRone 5 MG TAB PO SCH (09:50)
[2025-03-02 15:14] VITALS: BP 113/60; TEMP 97.4; O2SAT 97
[2025-03-03 06:19] VITALS: BP 129/68; TEMP 97.7; O2SAT 100
[2025-03-03 14:59] VITALS: BP 133/68; TEMP 97.6; O2SAT 96
[2025-03-03] MEDS: ACETAMINOPHEN 325 MG TAB PO PRN (20:20)
[2025-03-04 06:26] VITALS: BP 112/60; TEMP 97; O2SAT 100
[2025-03-04 08:37] VITALS: BP 112/60; TEMP 97; O2SAT 100
[2025-03-04 14:53] VITALS: BP 139/92; TEMP 97; O2SAT 98
[2025-03-04 20:23] VITALS: BP 125/85
[2025-03-05 06:26] VITALS: BP 119/59; TEMP 97.9; O2SAT 96
[2025-03-05] MEDS ORDERED: RISP-105 PO (09:18)
[2025-03-05] MEDS ORDERED: TRAZ-252 PO (09:18)
== END 2025-03-05 11:22 | disposition home or self-care (01) | DRG 885 ==
LOC: M ED 16:41 → M ED INP 18:59 → M PSY 20:30
PROVIDERS: ADMIT Psychiatry & Neurology Neurology; ATTEND Psychiatry & Neurology Neurology
DX: F25.9 Schizoaffective disorder, unspecified (principal); F90.9 Attention-deficit hyperactivity disorder, unspecified type; F32.A Depression, unspecified; R45.850 Homicidal ideations; K21.9 Gastro-esophageal reflux disease without esophagitis; I10 Essential (primary) hypertension; Z79.899 Other long term (current) drug therapy; Z88.8 Allergy status to other drugs, medicaments and biological substances; E11.9 Type 2 diabetes mellitus without complications; G47.33 Obstructive sleep apnea (adult) (pediatric); M54.59 Other low back pain; E66.9 Obesity, unspecified; G43.909 Migraine, unspecified, not intractable, without status migrainosus; M25.512 Pain in left shoulder; M79.661 Pain in right lower leg; M79.662 Pain in left lower leg

== ENCOUNTER → 2025-03-11 | Outpatient (CLI) | payer MEDICARE ==
[~2025-03-11] MED LIST changes: +BUSP15TA47 PO; +HYDR-3363 PO; +HYDR50TA70 PO; +MELA5TAB44 PO; +RISP-105 PO; +TRAZ-252 PO
== END ==
LOC: M WUC 11:47
PROVIDERS: ATTEND Physician Assistant Medical
DX: M25.512 Pain in left shoulder (principal)